=== PATIENT | male | born 1985 | race Caucasian/White ===

== ENCOUNTER 2017-03-28 12:54 | Emergency (ER) | payer OTHER ==
[2017-03-28 13:02] VITALS: BP 128/80
== END 2017-03-28 14:17 | disposition home or self-care (01) ==
LOC: ED 12:54
DX: M25.461 Effusion, right knee (principal)

== ENCOUNTER 2018-09-22 11:05 | Emergency (ER) | payer OTHER ==
[~2018-09-22] VITALS: Ht 170.2 cm; Wt 83.5 kg
[2018-09-22 11:14] VITALS: BP 148/101; Ht 170.2 cm; Wt 83.5 kg
== END 2018-09-22 11:54 | disposition home or self-care (01) ==
LOC: ED 11:05
DX: M25.461 Effusion, right knee (principal)